=== PATIENT | female | born 1940 | race Caucasian/White ===

== ENCOUNTER 2017-12-07 11:44 | Emergency (ER) | payer MEDICARE ==
[2017-12-07 12:35] LABS: BILIRUBIN,URINE NEGATIVE (NEGATIVE); GLUCOSE, URINE (UA) NEGATIVE (NEGATIVE); KETONES,URINE (UA) NEGATIVE (NEGATIVE); LEUKOCYTE ESTERASE, URINE TRACE (NEGATIVE); NITRITE,URINE NEGATIVE (NEGATIVE); OCCULT BLOOD,URINE TRACE-LYSE (NEGATIVE); PROTEIN,URINE NEGATIVE (NEGATIVE); UROBILINOGEN,URINE 0.2 (NORMAL) E.U./dL (NORMAL)
[2017-12-07 12:37] LABS: CLARITY,URINE CLEAR (CLEAR)
[2017-12-07 12:46] LABS: BACTERIA,URINE Rare /HPF (None Seen); RBC,URINE 0-5 /HPF (0-5); SQUAMOUS EPITHELIAL CELL,UR RARE Squamous (<= Few)
--- NOTE | 2017-12-07 12:51 | ED Physician Documentation ---
PD HPI FEMALE - Stated complaint Stated Complaint: FEMALE - Chief complaint Chief Complaint: UTI - History obtained from History obtained from: Patient - History of Present Illness Timing - onset: Today Timing - details: Abrupt onset Associated symptoms: Dysuria, Urinary frequency. No: Fever Similar symptoms before: Diagnosis (utis) Recently seen: Not recently seen Review of Systems Constitutional: denies: Fever, Chills, Myalgias Nose: denies: Rhinorrhea / runny nose, Congestion Throat: denies: Sore throat Respiratory: denies: Cough : reports: Dysuria, Frequency. denies: Discharge Skin: denies: Rash PD PAST MEDICAL HISTORY - Past Medical History : Frequency - Present Medications Home Medications: Ambulatory Orders Medication Instructions Recorded Confirmed Atorvastatin [Lipitor] 12/07/17 Brimonidine Tartrate/Timolol 12/07/17 [Combigan 0.2%-0.5% Eye Drops] Brimonidine Tartrate/Timolol 10 ml OP 12/07/17 12/07/17 [Combigan 0.2%-0.5% Eye Drops] Flecainide [Tambocar] 50 mg PO Q12H 12/07/17 12/07/17 Losartan [Cozaar] 50 mg PO DAILY 12/07/17 12/07/17 Phenazopyridine HCl 200 mg PO TID PRN #10 tablet 12/07/17 Rivaroxaban [Xarelto] 20 mg PO 12/07/17 Sulfamethox/Trimeth 800/160 1 each PO BID #10 tablet 12/07/17 [Bactrim Ds 800/160] - Allergies Allergies/Adverse Reactions: Allergies Allergy/AdvReac Type Severity Reaction Status Date / Time No Known Drug Allergies Allergy Verified 12/07/17 11:57 PD ED PE NORMAL - Vitals Vital signs reviewed: Yes - General General: Alert and oriented X 3, No acute distress, Well developed/nourished - Abdomen Abdomen: Soft, Non tender - Female Female : Deferred - Rectal Rectal: Deferred - Back Back: No CVA TTP - Derm Derm: Normal color, Warm and dry Results - Vitals Vitals: Vital Signs - 24 hr 12/07/17 12/07/17 11:55 13:10 Temperature 36.5 C 36.4 C L Heart Rate 63 63 Respiratory 20 18 Rate Blood Pressure 118/53 L 149/62 H O2 Saturation 97 95 Oxygen O2 Source Room air - Labs Labs: Laboratory Tests 12/07/17 12:05 Urine Color LIGHT YELLOW Urine Clarity CLEAR Urine pH 6.0 Ur Specific [place] <=1.005 Urine Protein NEGATIVE Urine Glucose (UA) NEGATIVE Urine Ketones NEGATIVE Urine Occult Blood TRACE-LYSE Urine Nitrite NEGATIVE Urine Bilirubin NEGATIVE Urine Urobilinogen 0.2 (NORMAL) Ur Leukocyte Esterase TRACE H Urine RBC 0-5 Urine WBC 0-3 Ur Squamous Epith Cells RARE Squamous Urine Bacteria Rare Ur Microscopic Review INDICATED Urine Culture Comments INDICATED PD MEDICAL DECISION MAKING - ED course Complexity details: reviewed results, considered differential (very early symptoms and UA suggestive positive. Can treat it. ), d/w patient - Sepsis Event Vital Signs: Vital Signs - 24 hr 12/07/17 12/07/17 11:55 13:10 Temperature 36.5 C 36.4 C L Heart Rate 63 63 Respiratory 20 18 Rate Blood Pressure 118/53 L 149/62 H O2 Saturation 97 95 Oxygen O2 Source Room air Departure - Departure Disposition: 01 Home, Self Care Clinical Impression: Cystitis Condition: Stable Record reviewed to determine appropriate education?: Yes Instructions: Urinary Tract Infecs Women Prescriptions: Phenazopyridine HCl 200 mg PO TID PRN #10 tablet PRN Reason: Pain Sulfamethox/Trimeth 800/160 [Bactrim Ds 800/160] 1 each PO BID #10 tablet Comments: Drink lots of fluids. Take the Bactrim twice daily for 5 days for the infection. Add phenazopyridine if needed for discomfort (be where it may turn urine a little orange). You can use Tylenol or ibuprofen if needed for pains. Recheck if not improving over the next few days. Discharge Date/Time: 12/07/17 13:13
[2017-12-07] MEDS ORDERED: SULFAMETH/TRIMETH DS 800/160 MG TABLET PO STA (13:00)
[2017-12-07 13:11] VITALS: BP 149/62
== END 2017-12-07 13:13 | disposition home or self-care (01) ==
LOC: ED 11:44
DX: N30.90 Cystitis, unspecified without hematuria (principal)
CPT/HCPCS: 81001; 87077; 87086; 87181; 99283; A9270; 81003